=== PATIENT | male | born 1990 | race African-American/Black ===

== ENCOUNTER 2017-05-18 09:15 | Emergency (ER) | payer SELFPAY ==
[2017-05-18 09:46] VITALS: BP 116/74
--- NOTE | 2017-05-18 09:59 | ED Physician Documentation ---
Male Genitourinary Problems - HISTORIAN Historian: patient - HPI Stated Complaint: penile discharge Chief Complaint: Male Urogenital Problems Additional Information: Patients tates that he has had a whitish discharge form penis since February. Was tested for GC and chlamydia and was tested clean. Discharge comes and goes. Having some mild burnig with urination. Has had chlamydia in October of last year and was treated. Has had some mild pain in the testicles. Patient stated he is sexually active and is not been using any condoms. Patient states that is partly does his partner is not had any discharge or problems. Duration: continues in ED - Associated Symptoms Problems Urinating: none, frequent urination, discomfort w/ urination, burning w / urination. denies: blood in urine, urgency w/ urination Penile Discharge Descripiton: watery Testicular Pain: R testicle, L testicle Testicular Swelling: none Penile Pain: No Penile Swelling: No Flank Pain: none Abdominal Pain: none - ROS CONST: none - PAST HX Past History: denies: erectile dysfunction, epididymitis, bladder infection, prostate infection Cardiac Disease: none Surgeries/Procedures: none Allergies/Adverse Reactions: Allergies Allergy/AdvReac Type Severity Reaction Status Date / Time No Known Allergies Allergy Verified 05/18/17 09:46 Home Medications: Ambulatory Orders Medication Instructions Recorded Azithromycin [Zithromax] 1,000 mg PO DIRECTED #6 tablet 05/18/17 - SOCIAL HX Smoking History: non-smoker Alcohol Use: other (2 beers a week) Drug Use: marijuana - FAMILY HX Family History: none - VITAL SIGNS Vital Signs: Vital Signs Temp Pulse Resp BP Pulse Ox 97.6 F 88 20 116/74 99 05/18/17 10:42 05/18/17 10:42 05/18/17 10:42 05/18/17 10:42 05/18/17 10:42 - REVIEWED ASSESSMENTS Nursing Assessment Reviewed: Yes Vitals Reviewed: Yes ED Results Lab/Radiology - Lab Results Lab Results: Lab Results 05/18/17 10:10 Urine Color Yellow (YELLOW) Urine Appearance Clear (CLEAR) Urine pH 7.0 (5.0 - 8.0) Ur Specific Sulphur 1.020 (1.010-1.030) Urine Protein Negative mg/dL mg/dL (NEGATIVE) Urine Ketones Negative mg/dL mg/dL (NEGATIVE) Urine Occult Blood Negative (NEGATIVE) Urine Nitrite Negative (NEGATIVE) Urine Bilirubin Negative (NEGATIVE) Urine Urobilinogen 0.2 Eu Eu (0.2-1.0) Ur Leukocyte Esterase Negative (NEGATIVE) Urine Glucose Negative mg/dL mg/dL (NEGATIVE) - Orders Orders: ED Orders Category Date Time Status CHLAMYDIA & GONORRHOEAE Routine Lab 05/18/17 10:10 Received URINALYSIS Routine Lab 05/18/17 10:10 Completed cefTRIAXone SODIUM [Rocephin] Med 05/18/17 10:06 Discontinued 500 mg IM NOW ONE Male Genitourinary Problems - EXAM General Appearance: no acute distress Abdomen: non-tender, no organomegaly. No: tenderness, guarding, rebound Genitals: nml inspection, testicles nml palp., urethral discharge (slight), examined while standing, other (no skin lesions noted). No: epididymal tenderness Respiratory: no resp distress, chest non-tender, breath sounds normal. No: wheezes, rales, rhonchi CVS: reg rate & rhythm, heart sounds normal, equal pulses, no murmur Back: non-tender Neuro/Psych: oriented X3, cognition normal Discharge Clincal Impression: Nonspecific urethritis Prescriptions: Azithromycin [Zithromax] 1,000 mg PO DIRECTED #6 tablet Referrals: Steve Raymundo MD [Primary Care Provider] - 2 Days Additional Instructions: Test for STD will be back in 3 to 4 days. If you continue to have problems to follow-up with your primary care provider. Condition: Stable Disposition: HOME, SELF-CARE Decision to Admit: NO Date of Decison to Admit: 05/18/17 Decision Time: 10:14
[2017-05-18 10:15] LABS: APPEARANCE,URINE Clear (CLEAR); COLOR,URINE Yellow (YELLOW); OCCULT BLOOD,URINE Negative (NEGATIVE); UROBILINOGEN URINE 0.2 Eu (0.2-1.0)
== END 2017-05-18 10:42 | disposition home or self-care (01) ==
LOC: ED 09:15
DX: N34.2 Other urethritis (principal)
CPT/HCPCS: 81002; 87801; 96372; 99283; J0696